=== PATIENT | male | born 1945 | race Caucasian/White ===

== ENCOUNTER → 2017-12-23 | Outpatient (CLI) | payer MEDICARE ==
[~2017-12-23] MED LIST: AMLO5 PO; CETI10 PO; CODACE30 PO; CRUTCH4 USE; CYCL10; CYCL10 PO; ENOX40I SC; ETOD400; FEXO60; HYDMOR2 PO; MECL25 PO; METO100ER; METO100ER PO; NAPR500ERA PO; OXYACE5T PO; SUMA25; SUMA25 PO
== END | disposition home or self-care (01) ==
LOC: LAB SHORT 09:50 → PLD 09:50
DX: D48.5 Neoplasm of uncertain behavior of skin (principal)
CPT/HCPCS: 88305

== ENCOUNTER → 2018-07-28 | Outpatient (CLI) | payer MEDICARE ==
[2018-07-28 14:58] LABS: BASOPHILS ABSOLUTE AUTO 0.02 K/mm3 (0.00-0.23); BASOPHILS PERCENT AUTO 0 % (0-2); EOSINOPHILS ABSOLUTE AUTO 0.11 K/mm3 (0.00-0.68); EOSINOPHILS PERCENT AUTO 1 % (0-6); Hematocrit 43.9 % (37.0-53.0); Hemoglobin 14.8 g/dL (13.5-17.5); IMMATURE GRAN ABSOLUTE AUTO 0.04 K/mm3 (0.00-0.10); IMMATURE GRAN PERCENT AUTO 1 % (0-1); LYMPHOCYTES ABSOLUTE AUTO 1.46 K/mm3 (0.84-5.20); LYMPHOCYTES PERCENT AUTO 17 % (21-46); MONOCYTES ABSOLUTE AUTO 0.53 K/mm3 (0.16-1.47); MONOCYTES PERCENT AUTO 6 % (4-13); Mean Corpuscular HGB 31.4 pg (26.0-34.0); Mean Corpuscular HGB Conc 33.7 g/dL (31.5-36.5); Mean Corpuscular Volume 93 fL (80-100); Mean Platelet Volume 10.1 fL (9.1-12.4); NEUTROPHILS ABSOLUTE AUTO 6.28 K/mm3 (1.96-9.15); NEUTROPHILS PERCENT AUTO 74 % (41-73); Platelet Count 323 K/mm3 (150-400); RDW Coefficient Variation 12.8 % (11.7-14.2); RDW Standard Deviation 44.1 fL (35.1-46.3); Red Blood Cell Count 4.71 M/mm3 (4.30-5.90); White Blood Cell Count 8.44 K/mm3 (4.00-11.30)
[2018-07-28 15:28] LABS: Alanine Aminotransfer (ALT/SGP 17 U/L (12-78); Alk Phos 114 U/L (50-136); Anion Gap 7 mmol/L (6-16); Aspartate Aminotrans (AST/SGOT 19 U/L (12-37); Bilirubin, Total 0.5 mg/dL (0.1-1.0); Blood Urea Nitrogen 13 mg/dL (8-24); Bun/Creatinine Ratio 17.9 (12.0-20.0); CO2, Blood 27 mmol/L (21-32); Calcium, Blood 9.4 mg/dL (8.5-10.1); Chloride, Blood 103 mmol/L (98-108); Creatinine, Blood 0.73 mg/dL (0.60-1.20); Glomerular Filtration Rate >60 (60-); Glucose, Blood 101 mg/dL (70-99); Potassium, Blood 5.4 mmol/L (3.5-5.5); Sodium, Blood 137 mmol/L (136-145); Thyroxine (T4) 7.9 ug/dL (4.5-12.1)
== END | disposition home or self-care (01) ==
LOC: EDSTATUS 12:50 → LAB 14:40 → LAB SHORT 14:40
PROVIDERS: Family Medicine
DX: R63.4 Abnormal weight loss (principal)
CPT/HCPCS: 80053; 84436; 84443; 85025

== ENCOUNTER 2020-06-18 07:08 | Emergency (ER) | payer MEDICARE ==
[~2020-06-18] VITALS: Ht 182.9 cm; Wt 79.4 kg
[2020-06-18 07:26] LABS: BASOPHILS ABSOLUTE AUTO 0.03 K/mm3 (0.00-0.23); BASOPHILS PERCENT AUTO 1 % (0-2); EOSINOPHILS ABSOLUTE AUTO 0.14 K/mm3 (0.00-0.68); EOSINOPHILS PERCENT AUTO 2 % (0-6); Hematocrit 40.9 % (37.0-53.0); Hemoglobin 14.1 g/dL (13.5-17.5); IMMATURE GRAN ABSOLUTE AUTO 0.03 K/mm3 (0.00-0.10); IMMATURE GRAN PERCENT AUTO 1 % (0-1); LYMPHOCYTES ABSOLUTE AUTO 1.98 K/mm3 (0.84-5.20); LYMPHOCYTES PERCENT AUTO 34 % (21-46); MONOCYTES ABSOLUTE AUTO 0.54 K/mm3 (0.16-1.47); MONOCYTES PERCENT AUTO 9 % (4-13); Mean Corpuscular HGB 31.4 pg (26.0-34.0); Mean Corpuscular HGB Conc 34.5 g/dL (31.5-36.5); Mean Corpuscular Volume 91 fL (80-100); Mean Platelet Volume 9.3 fL (9.1-12.4); NEUTROPHILS PERCENT AUTO 53 % (41-73); Platelet Count 197 K/mm3 (150-400); RDW Coefficient Variation 12.9 % (11.7-14.2); RDW Standard Deviation 42.9 fL (35.1-46.3); Red Blood Cell Count 4.49 M/mm3 (4.30-5.90); White Blood Cell Count 5.82 K/mm3 (4.00-11.30)
[2020-06-18 07:44] LABS: Alanine Aminotransfer (ALT/SGP 18 U/L (12-78); Albumin, Blood 3.5 g/dL (3.4-5.0); Albumin/Globulin Ratio 0.9 (0.8-1.8); Alk Phos 83 U/L (50-136); Anion Gap 6 mmol/L (6-16); Aspartate Aminotrans (AST/SGOT 18 U/L (12-37); Bilirubin, Total 0.6 mg/dL (0.1-1.0); Blood Urea Nitrogen 13 mg/dL (8-24); Bun/Creatinine Ratio 22.1 (12.0-20.0); CO2, Blood 26 mmol/L (21-32); Calcium, Blood 8.9 mg/dL (8.5-10.1); Chloride, Blood 106 mmol/L (98-108); Creatinine, Blood 0.59 mg/dL (0.60-1.20); Globulin, Blood 3.8 g/dL (2.2-4.0); Glomerular Filtration Rate >60 (60-); Glucose, Blood 132 mg/dL (70-99); International Normalized Ratio 1.04; Potassium, Blood 4.2 mmol/L (3.5-5.5); Prothrombin Time Results 11.1 Sec (9.7-11.5); Sodium, Blood 138 mmol/L (136-145); Total Protein, Blood 7.3 g/dL (6.4-8.2)
[2020-06-18 09:29] LABS: Influenza A, PCR Negative (NEGATIVE); Influenza B, PCR Negative (NEGATIVE); Resp Syncytial Virus, PCR Negative (NEGATIVE); SARS-Cov-2 (COVID-19) PCR, MMC Negative (NEGATIVE)
== END 2020-06-18 09:42 | disposition short-term general hospital (02) ==
LOC: ER 07:08
PROVIDERS: Emergency Medicine
DX: I63.9 Cerebral infarction, unspecified (principal); G81.94 Hemiplegia, unspecified affecting left nondominant side; I48.91 Unspecified atrial fibrillation; Z20.828 Contact with and (suspected) exposure to other viral communicable diseases; Z79.01 Long term (current) use of anticoagulants; Z79.899 Other long term (current) drug therapy
CPT/HCPCS: 0241U; 51702; 70450; 70496; 70498; 80053; 85025; 85610; 85730; 93005; 93010; 96374; 99285-25; G0480; Q9967